=== PATIENT | male | born 1990 | race Caucasian/White ===

== ENCOUNTER → 2017-01-22 | Outpatient (CLI) | payer OTHER | LOC: LBRF 10:39 | DX: N46.9 Male infertility, unspecified (principal) | CPT/HCPCS: 89310 ==

== ENCOUNTER 2020-11-16 09:37 | Emergency (ER) | payer OTHER ==
[2020-11-16] MEDS ORDERED: MOBIC15 MG PO (12:32)
[2020-11-16] MEDS ORDERED: CYCLOBENZAPRINE5 MG PO (12:32)
== END 2020-11-16 12:46 | disposition home or self-care (01) ==
LOC: ER1 09:37
DX: S09.90XA Unspecified injury of head, initial encounter (principal); S16.1XXA Strain of muscle, fascia and tendon at neck level, initial encounter; S70.01XA Contusion of right hip, initial encounter; S20.212A Contusion of left front wall of thorax, initial encounter; K21.9 Gastro-esophageal reflux disease without esophagitis; Z91.018 Allergy to other foods; V49.40XA Driver injured in collision with unspecified motor vehicles in traffic accident, initial encounter; Y92.410 Unspecified street and highway as the place of occurrence of the external cause
CPT/HCPCS: 70450; 71046; 72125; 72170; 73552; 99284

== ENCOUNTER → 2022-05-10 | Outpatient (CLI) | payer OTHER ==
[~2022-05-10] MED LIST: CYCLOBENZAPRINE5 MG PO; MOBIC15 MG PO
== END ==
LOC: KOH-I 09:30
DX: J01.81 Other acute recurrent sinusitis (principal); J32.4 Chronic pansinusitis
CPT/HCPCS: 70486